=== PATIENT | female | born 1940 | race Caucasian/White ===

== ENCOUNTER 2019-01-08 09:57 | Observation (INO) | payer OTHER ==
[2019-01-08 10:25] LABS: Absolute Lymphocytes (CBC) 1.7 K/uL (0.7-4.9); Basophils % 1.1 % (0-1.3); Hematocrit 39.1 % (36.0-45.0); Lymphocytes % 26.8 % (15.3-44.8); RBC Red Blood Cell Count 4.12 M/uL (3.86-4.86)
[2019-01-08 10:29] LABS: Potassium 3.9 mmol/L (3.5-5.1)
[2019-01-08] MEDS ORDERED: Ringers Lactate 1,000 ML IV ONE ×2 (10:29→13:25)
[2019-01-08] MEDS: TRANEXAMIC ACID 1,000 MG in NA CHLORIDE 0.9% 50 ML IV SCH ×3 (11:19→12:15)
[2019-01-08] MEDS ORDERED: BUPIVACA 0.5%/EPI 0.0005%/PF 30 ML VIAL ONE (11:49)
[2019-01-08] MEDS ORDERED: FENTANYL CITR 100 MCG/2 ML ONE (11:52)
[2019-01-08] MEDS ORDERED: MIDAZOLAM HCL 2 MG/2 ML INJ ONE (11:52)
[2019-01-08] MEDS ORDERED: PROPOFOL 200 MG/20 ML VIAL IV ONE (11:52)
[2019-01-08] MEDS ORDERED: LIDOCAINE 2% MPF 5 ML VIAL ONE (11:52)
--- NOTE | 2019-01-08 11:53 | EKG ---
Test Date: 2019-01-08 Test Time: 09:52:11 Crystal Cutter: SKHimanshu MEASUREMENT RESULTS: Intervals: Rate: 51 NV: 172 QRSD: 80 QT: 440 QTc: 405 Adams: P: 54 NV: 172 QRS: 17 T: 28 INTERPRETIVE STATEMENTS: Sinus bradycardia Low voltage QRS Borderline ECG No previous ECG available for comparison Electronically Signed On 01-08-19 11:52:39 REPEATER OPERATOR by Rubens Mak
[2019-01-08] MEDS ORDERED: GLYCOPYRROLATE 0.2 MG/ML SYR ONE ×2 (12:12→12:14)
[2019-01-08] MEDS ORDERED: ESMOLOL HCL 10 ML IV ONE (12:43)
[2019-01-08] MEDS ORDERED: LABETALOL 20 MG/4ML SYRINGE IV ONE (13:08)
[2019-01-08] MEDS ORDERED: KETOROLAC 30 MG/ML INJ ONE (13:19)
--- NOTE | 2019-01-08 13:41 | P.BOP ---
Preoperative diagnosis: left septic olecranon bursitis Postoperative diagnosis: same Primary procedure: left bursectomy with sharp dissection Estimated blood loss: 10 Anesthesia: General Complications: None Transferred to: Recovery Room Condition: Good
[2019-01-08 14:49] VITALS: BMI 27.4
[2019-01-08] MEDS ORDERED: VANCOMYCIN 1.25 GM in NA CHLORIDE 0.9% 250 ML IVPB SCH (15:00)
--- NOTE | 2019-01-08 16:39 | P.CNS ---
Date of Consult: 01/08/19
--- NOTE | 2019-01-08 16:52 | P.CNS ---
Date of Consult: 01/08/19 Reason for Consult: Medical Mgmgt Requesting Physician: Noé Hilario Chief Complaint: Left Elbow Bursitis History of Present Illness: 78 y/o F with PMHX of Scoliosis who is currently treated with Pain pump and Stanley for pain mgmt comes to the hospital after being found to have Left Elbow Septic Bursitis. Pt was seen by ortho and had Surgical Procedure today and was admitted for further mgmt. Medicine Team was consulted for Medical mgmt. Pt denies any h/o of HTN, Diabetes, heart Disease. Pt has been dx with scoliosis and has been seeing a pain mgmt speciality. Recently had pain pump installed and has been doing well since. Denies any other complains at this time. Allergies No Known Allergies Allergy (Verified 01/08/19 09:32) Home medications list reviewed: Yes Home Medications: Aspirin [Aspirin EC 81 MG] 81 mg PO DAILY 01/08/19 Atorvastatin Calcium [Lipitor] 40 mg PO BEDTIME 01/08/19 Clindamycin HCl 300 mg PO TID 01/08/19 Clorazepate Dipotassium [Tranxene T-Tab] 7.5 mg PO PRN PRN 01/08/19 Duloxetine HCl 60 mg PO DAILY 01/08/19 Hydrocodone Bit/Acetaminophen [Hydrocodon-Acetaminoph 7.5-325] 1 each PO Q6HP PRN 01/08/19 Pain Pump 1 dose SQ DAILY 01/08/19 Topiramate [Trokendi Xr] 50 mg PO DAILY 01/08/19 - Past Medical/Surgical History Diabetic: No -: Scolosis -: Chronic pain syndrome Past Surgical History: Reviewed- Non-Contributory - Social History Smoking Status: Current every day smoker Counseled patient to stop smoking for: more than 10 minutes Smoking therapy provided: Yes Patient receptive to therapy: Yes Alcohol use: No CD- Drugs: No Caffeine use: No Place of Residence: Home Review of Systems 10-point ROS is otherwise unremarkable Physical Examination Temp Pulse Resp BP Pulse Ox 97.2 F 61 16 112/60 95 01/08/19 16:00 01/08/19 16:00 01/08/19 16:00 01/08/19 16:00 01/08/19 16:00 General: In no apparent distress, Other (Sedated at this time ) Neck: Supple, 2+ carotid pulse no bruit, No LAD, Without JVD or thyroid abnormality Respiratory: Clear to auscultation bilaterally, Normal air movement Cardiovascular: Regular rate/rhythm, Normal S1 S2 Gastrointestinal: Normal bowel sounds, No tenderness Musculoskeletal: Erythema, Tenderness, Warmth Integumentary: No rashes Neurological: Normal gait, Normal speech, Normal tone, Normal affect Lymphatics: No axilla or inguinal lymphadenopathy Laboratory Data (last 24 hrs) 01/08/19 09:40: Sodium 144, Potassium 3.9, BUN 17, Creatinine 0.87, Glucose 104 01/08/19 09:40: WBC 6.2, Hgb 13.7, Hct 39.1, Plt Count 243 - Problems (1) Olecranon bursitis, left elbow Current Visit: Yes Status: Acute Plan: Left Elbow with Septic Olecranon Bursitis -Ortho Primary on the case. -S.p I&D now POD # 0 -On IV Abx for now -Wound culture pending (2) Degenerative scoliosis in adult patient Current Visit: Yes Status: Chronic Plan: Stable at this time -Pain mgmt (3) Chronic pain syndrome Current Visit: Yes Status: Chronic Plan: On Pain pump and Stanley PRN. Will restart
[2019-01-08] MEDS: TRAMADOL 37.5mg/APAP 325mg PER TAB PO PRN (22:38)
[2019-01-08 23:25] VITALS: O2SAT 95
--- NOTE | 2019-01-09 00:28 | OP ---
Date of Procedure: 01/08/2019 Surgeon: Noé Hilario MD Preoperative Diagnosis: Left elbow septic olecranon bursitis. Postoperative Diagnosis: Left elbow septic olecranon bursitis. Procedure Performed: Left elbow bursectomy with sharp irrigation and debridement with closure of her drains. Estimated Blood Loss: 10 mL. Complications: There were no complications. There are cultures sent. Specimen: There is also the pathology specimen sent. Indication For Operation: Ms. Vincent is a 78-year-old female who reportedly 1 month ago started havin g pain and swelling related to her left elbow. She was seen by another physician where it was daljita talya. She said some white-appearing liquid was obtained. She was then placed on antibiotics and she continued on antibiotics, which did improve her elbow, but unfortunately still has an erythematous la rge olecranon bursa, which has not resolved despite 1 month of antibiotics. She was seen in offic e on Monday, where it was aspirated. Cultures did not return any pathogens, which is not surprising because of antibiotic treatment. However, she was continued on antibiotics until Monday and yesterda y we discussed again surgical intervention. She says she understands things as presented and wishes to proceed. Description Of Procedure: The patient was taken to the operating room and placed in supine position. General anesthesia was obtained by the staff. Following this, she was then rolled right side down with an axillary roll on a gutierrez bag. Bony prominences were checked by Anesthesia and her left upper extremity was then prepped and draped in usual sterile fashion for the procedure. Following this, th e arm was then elevated, but not exsanguinated. Tourniquet was raised. A posterior incision was mad e carefully down through the skin only, which was well above the elbow and well below the elbow and c are was taken not to progress deeper than the skin and also care was taken to avoid the direct tip of the elbow. This is followed by a very meticulous dissection more on the radial side. This was proc eeded in a clockwise fashion from 12 o'clock to 6 o'clock. We were able to gain purchase to the unde rsurface of the bursa. This was then shelled out to slightly past the midline. Care being taken to avoid the ulnar nerve. The same technique is done from a 12 o'clock to 6 o'clock position in a clock marks fashion. Stephanie care being taken to identify and protect the ulnar nerve until this was complete ly excised. Following this, a rongeur was used to remove some other tissues and cultures were sent f rom the specimen. The wound was then irrigated with approximately 2 L of sterile saline, it was agai n observed. There was found to be no sign of any purulent material and decision was made to close ov er drain. A medium Hemovac drain was then placed deep to the skin. Horizontal mattress sutures were then used to close the skin. The patient was then placed in extremely well-padded sterile dressing as well as a posterior splint, awakened and taken to the recovery room in good condition. JOSE Voice ID: [id number] Report ID: [id number]
[2019-01-09] MEDS: TRAMADOL 37.5mg/APAP 325mg PER TAB PO PRN (08:29)
[2019-01-09] MEDS ORDERED: levoFLOXacin 500 MG TAB PO SCH (09:00)
[2019-01-09 13:40] VITALS: BP 118/70; TEMP 98.1
== END 2019-01-09 15:18 | disposition home or self-care (01) ==
LOC: OR 09:57 → 2ND 14:02
PROVIDERS: ADMIT Orthopaedic Surgery; ATTEND Orthopaedic Surgery
PROC: 0MB40ZZ Excision of Left Elbow Bursa and Ligament, Open Approach (ICD-10-PCS; principal; 2019-01-08 11:30)
DX: M71.122 Other infective bursitis, left elbow (principal); M41.50 Other secondary scoliosis, site unspecified; G89.4 Chronic pain syndrome; Z79.82 Long term (current) use of aspirin; G47.30 Sleep apnea, unspecified
CPT/HCPCS: 93005; 87070; 85025; 80048; 36415; 87205 ×2; 88304; 87075; 97116; 97161; 24105; J2704; J3010; G0378 ×4; J7120 ×2; J7030; 88305; J2250

== ENCOUNTER 2020-03-13 07:05 | Inpatient (IN) | payer OTHER ==
[2020-03-13] MEDS ORDERED: LIDOCAINE VISCOUS 2% SOLN 15 ML UDC ONE (07:58)
[2020-03-13] MEDS ORDERED: ACETAMINOPHEN 325 MG TABLET ONE (08:25)
[2020-03-13] MEDS ORDERED: HYDROCODONE/APAP 10/325 TAB ONE (08:25)
[2020-03-13 08:29] LABS: Absolute Lymphocytes (CBC) 0.8 K/uL (0.7-4.9); Basophils % 0.1 % (0-1.3); Hematocrit 35.4 % (36.0-45.0); Lymphocytes % 5.2 % (15.3-44.8); MPV 7.7 fL (7.6-11.3); RBC Red Blood Cell Count 3.89 M/uL (3.86-4.86)
[2020-03-13 08:44] LABS: Potassium 3.3 mmol/L (3.5-5.1)
[2020-03-13 08:49] LABS: SARS-COV-2 RT PCR NEGATIVE (NEGATIVE)
--- NOTE | 2020-03-13 09:00 | RAD REPORT ---
EXAM DESCRIPTION: CT - Soft Tissue Neck W/Contr - 03/13/2020 8:42 am CLINICAL HISTORY: Neck pain with sore throat COMPARISON: None. TECHNIQUE: Computed axial tomography of the neck was obtained. 50 cc Isovue 300 was administered in travenously. Coronal and sagittal reconstruction was performed. All CT scans are performed using dose optimization technique as appropriate and may include automated exposure control or mA/KV adjustment according to patient size. FINDINGS: Fullness involves the right tongue base The pharynx, larynx and subglottic trachea appear unremarkable The parotid, submandibular and thyroid glands appear unremarkable. No lymphadenopathy is seen The sinuses and mastoids are clear. Postsurgical changes involve the lumbar spine IMPRESSION: Fullness involves the right tongue base. Direct visualization recommended
[2020-03-13 09:02] LABS: Blood Morphology Comment NOT SEEN (NOT SEEN); Platelet Estimate ADEQ
[2020-03-13] MEDS ORDERED: CEFTRIAXONE/SWI 1gm 1 GM/10 ML SYR ONE (10:45)
[2020-03-13] MEDS ORDERED: IBUPROFEN 200 MG TAB PO ONE (13:20)
[2020-03-13] MEDS ORDERED: IBUPROFEN 400 MG TAB ONE (13:20)
[2020-03-13 13:59] LABS: Absolute Lymphocytes (CBC) 1.9 K/uL (0.7-4.9); Basophils % 0.1 % (0-1.3); Lymphocytes % 7.9 % (15.3-44.8); MPV 7.8 fL (7.6-11.3); RBC Red Blood Cell Count 4.19 M/uL (3.86-4.86)
[2020-03-13] MEDS ORDERED: dexAMETHasone 10 MG/ML VIAL ONE (14:07)
[2020-03-13] MEDS ORDERED: CLINDAMYCIN 600MG/D5W 600 MG/50 ML BAG IV ONE (14:07)
[2020-03-13] MEDS ORDERED: ACETAMINOPHEN 500 MG TAB PO PRN (14:12)
[2020-03-13] MEDS ORDERED: ONDANSETRON 4 MG/2 ML VIAL IV PRN (14:12)
[2020-03-13] MEDS ORDERED: HYDROMORPHONE HCL 1 MG/ML INJ IV PRN (14:12)
--- NOTE | 2020-03-13 14:15 | ER ---
Nurse's Notes [facility] Name: Sylvia Vincent Age: 79 yrs Sex: Female : 1940 Arrival Date: 03/13/2020 Time: 07:06 Bed 7 Private MD: Diagnosis: Cata Liang Presentation: 03/13 07:17 Chief complaint: Sore throat x [address] Tabares 2 days ago, COVID and strep hb negative. Coronavirus screen: sore throat, Client presents with at least one sign or symptom that may indicate coronavirus-19. Standard/surgical mask placed on the client. Provider contacted for isolation considerations. Ebola Screen: No symptoms or risks identified at this time. Initial Sepsis Screen: Does the patient meet any 2 criteria? No. Patient's initial sepsis screen is negative. Does the patient have a suspected source of infection? No. Patient's initial sepsis screen is negative. Risk Assessment: Do you want to hurt yourself or someone else? Patient reports no desire to harm self or others. Onset of symptoms was March 08, 2020. 07:17 Method Of Arrival: Wheelchair hb 07:17 Acuity: CARLEE 4 hb 08:17 Acuity: CARLEE 3 hb Historical: - Allergies: 07:20 No Known Allergies; hb - Home Meds: 07:21 Pain Pump [Active]; hb - PMHx: 07:20 Scoliosis; Osteoarthritis; Chronic Back Pain; hb - PSHx: 07:20 Hysterectomy; hb - Immunization history:: Adult Immunizations up to date. - Social history:: Smoking status: Patient reports the use of cigarette tobacco products, smokes one-half pack cigarettes per day. Screenin:42 Abuse screen: Denies threats or abuse. Denies injuries from another. Nutritional sv screening: No deficits noted. Tuberculosis screening: No symptoms or risk factors identified. Fall Risk None identified. Assessment: 07:42 General: Appears in no apparent distress. uncomfortable, well groomed, well developed, sv Behavior is calm, cooperative, appropriate for age. Pain: Complains of pain in left aspect of posterior pharynx and right aspect of posterior pharynx Pain currently is 9 out of 10 on a pain scale. Pain began 2-3 days ago. Is intermittent. Neuro: Level of Consciousness is awake, alert, obeys commands, Oriented to person, place, time, situation, Moves all extremities. Full function. Respiratory: Airway is patent Respiratory effort is even, unlabored, Respiratory pattern is regular, symmetrical. EENT: Throat unable to fully visualize the back of the throat. Musculoskeletal: Range of motion: intact in all extremities. 09:00 Reassessment: Patient appears in no apparent distress at this time. No changes from sv previously documented assessment. Patient and/or family updated on plan of care and expected duration. Pain level reassessed. Patient is alert, oriented x 3, equal unlabored respirations, skin warm/dry/pink. 10:50 Reassessment: Patient appears in no apparent distress at this time. No changes from sv previously documented assessment. Patient and/or family updated on plan of care and expected duration. Pain level reassessed. Patient is alert, oriented x 3, equal unlabored respirations, skin warm/dry/pink. 12:14 Reassessment: Patient appears in no apparent distress at this time. No changes from sv previously documented assessment. Patient and/or family updated on plan of care and expected duration. Pain level reassessed. Patient is alert, oriented x 3, equal unlabored respirations, skin warm/dry/pink. 13:36 Reassessment: Patient appears in no apparent distress at this time. No changes from sv previously documented assessment. Patient and/or family updated on plan of care and expected duration. Pain level reassessed. Patient is alert, oriented x 3, equal unlabored respirations, skin warm/dry/pink. Dr Mahmood at the bedside. 14:30 Reassessment: Patient appears in no apparent distress at this time. No changes from sv previously documented assessment. Patient and/or family updated on plan of care and expected duration. Pain level reassessed. Patient is alert, oriented x 3, equal unlabored respirations, skin warm/dry/pink. 14:42 Reassessment: Attempted to call report, nurse unavailable. sv 15:30 Reassessment: Patient appears in no apparent distress at this time. No changes from sv previously documented assessment. Patient and/or family updated on plan of care and expected duration. Pain level reassessed. Patient is alert, oriented x 3, equal unlabored respirations, skin warm/dry/pink. Vital Signs: 07:17 BP 138 / 64; Pulse 72; Resp 16; Temp 100.9(TE); Pulse Ox 97% on R/A; Pain 9/10; hb 09:09 BP 121 / 55; Pulse 65; Resp 20; Temp 100.6(O); Pulse Ox 93% on R/A; mh5 10:02 BP 107 / 51; Pulse 62; Resp 16; Pulse Ox 94% ; sv 10:59 BP 117 / 58; Pulse 64; Resp 18; Temp 100.0(O); Pulse Ox 96% on R/A; mh5 12:01 BP 119 / 67; Pulse 68; Resp 18; Temp 101.3(O); Pulse Ox 100% on R/A; mh5 12:57 BP 120 / 50; Pulse 70; Resp 18; Temp 101.7; Pulse Ox 99% on R/A; mh5 14:03 BP 156 / 63; Pulse 66; Resp 16; Pulse Ox 95% on R/A; sv ED Course: 07:06 Patient arrived in ED. ag3 07:19 Triage completed. hb 07:21 Richie Hoang MD is Attending Physician. kdr 07:21 Arm band placed on. hb 07:22 Luz Rae, ALLIE is Primary Nurse. sv 07:42 Patient has correct armband on for positive identification. Bed in low position. Call sv light in reach. Door closed. Head of bed elevated. 07:42 COVID swab sent to lab. Flu and/or RSV swab sent to lab. Strep swab sent to lab. sv 08:20 Initial lab(s) drawn, by ri, sent to lab. Inserted saline lock: 20 gauge in right aa5 forearm, using aseptic technique. Blood collected. 08:37 Chem 7 Sent. sv 08:37 CBC with Diff Sent. sv 08:42 CT Soft Tissue Neck W/contr In Process Unspecified. EDMS 09:10 Pulse ox on. NIBP on. mh5 13:55 CBC with Diff Sent. mh5 14:13 Allison Shipman MD is Hospitalizing Provider. kdr 14:42 No provider procedures requiring assistance completed. Patient admitted, IV remains in sv place. intact. Administered Medications: 07:49 Drug: Viscous Lidocaine Liquid (4 %) 5 ml Route: Mucous Membrane; sv 08:24 Drug: [place] 10 mg-325 mg 1 tabs Route: PO; aa5 10:01 Follow up: Response: No adverse reaction; RASS: Drowsy (-1) sv 08:24 Drug: Tylenol 325 mg Route: PO; aa5 10:01 Follow up: Response: No adverse reaction; Temperature is decreased sv 10:50 Drug: Rocephin 1 grams Route: IV; Rate: calculated rate; Site: right forearm; sv 13:36 Drug: Motrin 600 mg Route: PO; sv 14:02 Follow up: Response: No adverse reaction sv 14:00 Drug: Decadron - Dexamethasone 10 mg Route: IVP; Site: right forearm; sv 15:00 Follow up: Response: No adverse reaction sv 14:02 Drug: Clindamycin 600 mg Route: IVPB; Infused Over: 30 mins; Site: right forearm; sv 14:30 Follow up: Response: No adverse reaction; IV Status: Infusion continued; IV Intake: 50mlsv Intake: 14:30 IV: 50ml; Total: 50ml. sv Outcome: 14:14 Decision to Hospitalize by Provider. kdr 15:30 Admitted to Med/surg accompanied by tech, via wheelchair, room 229, with chart, Report sv called to Dior KELLEY 15:30 Condition: stable 15:30 Instructed on the need for admit. 15:45 Patient left the ED. sv Signatures: Dispatcher [employer] Luz Ramírez RN Richie Duckworth MD MD kdr Calderon, Audri, RN RN 5 Violeta Lamb RN RN hb Martinez, Maria [facility] [place] 3
--- NOTE | 2020-03-13 14:15 | EDPHYS ---
Physician Documentation [facility] Name: Sylvia Vincent Age: 79 yrs Sex: Female : 1940 Arrival Date: 03/13/2020 Time: 07:06 Bed 7 Private MD: ED Physician Richie Hoang HPI: 03/13 07:39 This 79 yrs old Female presents to ER via Wheelchair with complaints of Sore kdr Throat. 07:40 The patient presents with sore throat, dysphagia, of both solids and liquids. The kdr patient describes throat pain as burning, constant, raw, scratchy. Onset: The symptoms/episode began/occurred gradually, 5 day(s) ago. Severity of symptoms: At their worst the symptoms were mild, moderate, just prior to arrival, in the emergency department the symptoms are unchanged. Modifying factors: The symptoms are alleviated by nothing, the symptoms are aggravated by fluids, foods, swallowing, Patient's oral intake status: good. Associated signs and symptoms: The patient has no apparent associated signs or symptoms. The patient has not experienced similar symptoms in the past. The patient has been recently seen by a physician: the patient's primary care provider, 2 day(s) ago. Historical: - Allergies: 07:20 No Known Allergies; hb - Home Meds: 07:21 Pain Pump [Active]; hb - PMHx: 07:20 Scoliosis; Osteoarthritis; Chronic Back Pain; hb - PSHx: 07:20 Hysterectomy; hb - Immunization history:: Adult Immunizations up to date. - Social history:: Smoking status: Patient reports the use of cigarette tobacco products, smokes one-half pack cigarettes per day. ROS: 07:40 Constitutional: Negative for fever, chills, and weight loss, Eyes: Negative for injury, kdr pain, redness, and discharge, Neck: Negative for injury, pain, and swelling, Cardiovascular: Negative for chest pain, palpitations, and edema, Respiratory: Negative for shortness of breath, cough, wheezing, and pleuritic chest pain, Abdomen/GI: Negative for abdominal pain, nausea, vomiting, diarrhea, and constipation, Back: Negative for injury and pain, : Negative for injury, bleeding, discharge, and swelling, MS/Extremity: Negative for injury and deformity, Skin: Negative for injury, rash, and discoloration, Neuro: Negative for headache, weakness, numbness, tingling, and seizure activity. Psych: Negative for depression, anxiety, suicide ideation, homicidal ideation, and hallucinations, Allergy/Immunology: Negative for hives, rash, and allergies, Endocrine: Negative for neck swelling, polydipsia, polyuria, polyphagia, and marked weight changes, Hematologic/Lymphatic: Negative for swollen nodes, abnormal bleeding, and unusual bruising. 07:40 ENT: Positive for sore throat. Exam: 07:40 Constitutional: This is a well developed, well nourished patient who is awake, alert, kdr and in no acute distress. Head/Face: Normocephalic, atraumatic. Eyes: Pupils equal round and reactive to light, extra-ocular motions intact. Lids and lashes normal. Conjunctiva and sclera are non-icteric and not injected. Cornea within normal limits. Periorbital areas with no swelling, redness, or edema. Neck: Trachea midline, no thyromegaly or masses palpated, and no cervical lymphadenopathy. Supple, full range of motion without nuchal rigidity, or vertebral point tenderness. No Meningismus. Chest/axilla: Normal chest wall appearance and motion. Nontender with no deformity. No lesions are appreciated. Cardiovascular: Regular rate and rhythm with a normal S1 and S2. No gallops, murmurs, or rubs. Normal PMI, no JVD. No pulse deficits. Respiratory: Lungs have equal breath sounds bilaterally, clear to auscultation and percussion. No rales, rhonchi or wheezes noted. No increased work of breathing, no retractions or nasal flaring. 07:40 ENT: Mouth: Lips: normal, moist, Oral mucosa: normal, pink and intact, Tongue: is normal, drooling, is not appreciated, Posterior pharynx: Airway: normal, patent, Tonsils: with erythema, no enlargement, no exudate, no ulcerations, Uvula: midline, swelling, is not appreciated, erythema, that is mild, exudate, is not appreciated, peritonsillar mass, is not appreciated, pooling of secretions, is not appreciated, Voice: is normal. Vital Signs: 07:17 BP 138 / 64; Pulse 72; Resp 16; Temp 100.9(TE); Pulse Ox 97% on R/A; Pain 9/10; hb 09:09 BP 121 / 55; Pulse 65; Resp 20; Temp 100.6(O); Pulse Ox 93% on R/A; mh5 10:02 BP 107 / 51; Pulse 62; Resp 16; Pulse Ox 94% ; sv 10:59 BP 117 / 58; Pulse 64; Resp 18; Temp 100.0(O); Pulse Ox 96% on R/A; mh5 12:01 BP 119 / 67; Pulse 68; Resp 18; Temp 101.3(O); Pulse Ox 100% on R/A; mh5 12:57 BP 120 / 50; Pulse 70; Resp 18; Temp 101.7; Pulse Ox 99% on R/A; mh5 14:03 BP 156 / 63; Pulse 66; Resp 16; Pulse Ox 95% on R/A; sv MDM: 09:19 Physician consultation: Luz Mahmood MD was called at 09:19. kdr 13:12 Data reviewed: vital signs, nurses notes, lab test result(s). Awaiting: consulting [facility] physician, Dr. Dr. Mahmood. 14:14 Patient medically screened. kdr 03/13 07:38 Order name: Strep; Complete Time: 08:50 kdr 03/13 08:07 Order name: CBC with Diff kdr 03/13 08:07 Order name: Chem 7 kdr 03/13 08:07 Order name: CBC with Automated Diff; Complete Time: 09:11 EDMS 03/13 08:07 Order name: Basic Metabolic Panel; Complete Time: 08:50 EDMS 03/13 08:13 Order name: Throat Culture EDMS 03/13 08:36 Order name: Manual Differential; Complete Time: 09:11 EDSD 03/13 08:49 Order name: COVID-19/FLU A+B; Complete Time: 08:50 EDMS 03/13 10:10 Order name: Blood Culture Adult (2) kdr 03/13 13:16 Order name: CBC with Diff kdr 03/13 14:16 Order name: Basic Metabolic Panel EDMS 03/13 14:16 Order name: Basic Metabolic Panel EDSD 03/13 08:06 Order name: CT Soft Tissue Neck W/contr; Complete Time: 09:11 kdr 03/13 14:16 Order name: CONS Pharmacy Consult EDMS 03/13 14:16 Order name: CONS Pharmacy Consult EDSD 03/13 14:16 Order name: Heart Healthy EDMS 03/13 14:16 Order name: CBC with Automated Diff EDMS 03/13 14:16 Order name: CBC with Automated Diff EDMS 03/13 14:39 Order name: CBC Smear Scan EDMS Administered Medications: 07:49 Drug: Viscous Lidocaine Liquid (4 %) 5 ml Route: Mucous Membrane; sv 08:24 Drug: [place] 10 mg-325 mg 1 tabs Route: PO; aa5 10:01 Follow up: Response: No adverse reaction; RASS: Drowsy (-1) sv 08:24 Drug: Tylenol 325 mg Route: PO; aa5 10:01 Follow up: Response: No adverse reaction; Temperature is decreased sv 10:50 Drug: Rocephin 1 grams Route: IV; Rate: calculated rate; Site: right forearm; sv 13:36 Drug: Motrin 600 mg Route: PO; sv 14:02 Follow up: Response: No adverse reaction sv 14:00 Drug: Decadron - Dexamethasone 10 mg Route: IVP; Site: right forearm; sv 15:00 Follow up: Response: No adverse reaction sv 14:02 Drug: Clindamycin 600 mg Route: IVPB; Infused Over: 30 mins; Site: right forearm; sv 14:30 Follow up: Response: No adverse reaction; IV Status: Infusion continued; IV Intake: 50mlsv Disposition: 03/13/20 14:14 Hospitalization ordered by Allison Shipman for Inpatient Admission. Preliminary diagnosis is Ludwigs Angia. - Bed requested for Telemetry/MedSurg (observation). - Status is Inpatient Admission. sv - Condition is Fair. - Problem is new. - Symptoms have improved. Signatures: Dispatcher [employer] EDSD Luz Rae RN Pam Orlando RN RN Richie Hoang MD MD [facility] Erinn Alexandre RN RN aa5 Violeta Lamb RN RN Corrections: (The following items were deleted from the chart) 08:03 07:39 CORONAVIRUS+MR.LAB.BRZ ordered. EDMS EDMS 08:04 07:39 Influenza Screen (A \T\ B)+BA.LAB.BRZ ordered. EDMS EDMS 14:34 14:14 Hospitalization Ordered by Allison Shipman MD for Inpatient Admission. Preliminary mw diagnosis is Ludwigs Angia. Bed requested for Telemetry/MedSurg (observation). Status is Inpatient Admission. Condition is Fair. Problem is new. Symptoms have improved. kdr 15:45 14:34 03/13/2020 14:14 Hospitalization Ordered by Allison Shipman MD for Inpatient sv Admission. Preliminary diagnosis is Ludwigs Angia. Bed requested for Telemetry/MedSurg (observation). Status is Inpatient Admission. Condition is Fair. Problem is new. Symptoms have improved. mw
[2020-03-13 14:39] LABS: Blood Morphology Comment NOT SEEN (NOT SEEN); Platelet Estimate ADEQ; White Blood Cell Scan OK (OK)
--- NOTE | 2020-03-13 15:52 | CON ---
Date of Consultation: 03/13/2020 Reason For Consultation: Sore throat. History Of Present Illness: The patient is seen in the emergency room complaining of pain in the nora th and pain with talking. She is unable to give significant additional history due to her discomfort . A separately obtained history is obtained from the spouse while he is in the waiting room. The sp ouse reports that on March 09, the patient began having some scratchy throat. She had prog ression of her scratchy throat and was seen on Monday, the 11 of March by her primary care, Dr Verona Jackman in [place]. A COVID test, a flu test, and a strep test were performed in the office and w ere all reported as negative. The patient was discharged home with no additional medications and no antibiotics. Over the next 48 hours, the patient continued to worsen and came to the emergency room this morning because she was holding her throat and having difficulty speaking. She was able to tole rate some sips of cold water at home. The reports the patient has a history of dental issues , but has fear of the dentist. She has not had any recent dental procedures. She has had no prior s imilar episodes. Further history obtained from the spouse includes the following. Past Medical/surgical History: Includes scoliosis, osteoarthritis, chronic back pain with history of a pain pump and pain management by Dr. Jackman. The patient has a remote history of hysterectomy an d breast biopsy. Allergies: NO KNOWN DRUG ALLERGIES. Social History: The patient smokes about 3/4 of a pack of cigarettes per day. Her spouse denies any alcohol use. Medications: Her home medication list brought by the patient includes aspirin 81 mg chewable daily, atorvastatin 40 mg daily, cefuroxime 250 mg for bladder infection. It is uncertain based on review o f the chart, whether she is actually on these medications or not. Clorazepate 7.5 mg for anxiety and depression, duloxetine 60 mg for anxiety and depression, hydrocodone/acetaminophen 10/325 for chroni c back pain, mupirocin 2% ointment or open wound. I did not discuss the site of the wound with the p atient or the spouse. Topiramate 50 mg for migraine. Physical Examination: The patient is in mild distress with pain and pain with speaking and talking. She is tolerating her own secretions. Her head and face are normocephalic and atraumatic. Her pupils are equal, round, an d reactive. Extraocular movements are intact. Her sclerae are anicteric. Her external nose and therese es are within normal limits. In regard to her oral cavity, her lips appear within normal limits. He r gingiva and dentition do not show any obvious cavity or dental abscess. She has mild trismus. The tongue overall appears somewhat swollen. I am not able to visualize her soft palate, uvula, posteri or pharyngeal wall, or tonsils. The floor of mouth is moderately edematous and fairly dramatically r ed with tenderness and moderate induration to palpation. There is no significant palpable lymphadeno roxana of the neck. Her range of motion appears to be intact. The patient's respirations are quiet a nd nonlabored. Her vitals signs are otherwise stable. Data Reviewed: The patient has leukocytosis at 15.5. Her CT images are personally reviewed by me. There is no evidence of hyperlucency or abscess formation within the oral cavity, oropharynx, or neck . There is some prominent area of possible increased contrast enhancement in level 1 of the neck. W ithout clear lymphadenopathy, this may represent some of the soft tissue edema that is noted on her e xam. This area of abnormality does not appear to be connected to the submandibular salivary glands. There is no significant soft tissue stranding around the salivary glands. There is no evidence of s ialolithiasis. There is no significant hyperlucency around the roots of the mandibular teeth to sugg est a clear dental abscess with extension. Assessments: Based on the physical exam, I am most concerned about Jose's angina, which represents a cellulitis of the floor of mouth. Most cases extend from dental infection, though no discrete den brett abscesses identified. Jose's angina is an infection that can progress and cause prolapse of th e base of tongue causing airway obstruction. Therefore, this is a moderate to high risk condition du e to the risk of airway obstruction without treatment. I recommend inpatient hospitalization with IV antibiotics, IV steroids, and close monitoring over the next 48-72 hours. If the patient improves s ignificantly within 48 hours, outpatient treatment can be administered. I discussed my findings and clinical concerns with the patient and the spouse and the emergency room, Dr. Vergara. He will plan to contact the hospitalist service for inpatient management. I will continue to follow the patient c losely along with you. We also discussed the option for transfer as there is no oral surgery faculty available at the local hospital. Due to the lack of obvious dental abscess, transferred to the [facility] for oral surgery evaluation can be considered in light of the current COVID pandemic surge , transferred to the [facility] may be difficult due to lack of bed availability. Appropriate an tibiotic choice would ideally cover intraoral pathogens and clindamycin would be my first choice. Th e patient has received 1 dose of Rocephin thus far. HAYLIE/HANNAH Voice ID: [id number] Report ID: [id number]
--- NOTE | 2020-03-13 15:58 | P.HP ---
Certification for Inpatient Patient admitted to: Inpatient With expected LOS: >2 Midnights Patient will require the following post-hospital care: None Practitioner: I am a practitioner with admitting privileges, knowledge of patient current condition, hospital course, and medical plan of care. Services: Services provided to patient in accordance with Admission requirements found in Title 42 Section 412.3 of the Code of Federal Regulations Patient History Date of Service: 03/13/20 Reason for admission: Oropharyngeal erythema/? Jose's angina History of Present Illness: Patient is a 79-year-old female who comes into the hospital with significant erythema of the oropharyngeal region. Patient was felt to have Jose's angina. Patient was admitted for IV antibiotic therapy. We will monitor the patient very closely. ENT consultation is also in place. Patient also has very poor dentition. Patient will need to follow-up with dentist as an outpatient. Allergies No Known Allergies Allergy (Verified 01/08/19 09:32) Home Medications: Aspirin [Aspirin EC 81 MG] 81 mg PO DAILY 01/08/19 Atorvastatin Calcium [Lipitor] 40 mg PO BEDTIME 01/08/19 Clorazepate Dipotassium [Tranxene T-Tab] 7.5 mg PO PRN PRN 01/08/19 Duloxetine HCl 60 mg PO DAILY 01/08/19 Hydrocodone Bit/Acetaminophen [Hydrocodon-Acetaminoph 7.5-325] 1 each PO Q6HP PRN 01/08/19 Pain Pump 1 dose SQ DAILY 01/08/19 Topiramate [Trokendi Xr] 50 mg PO DAILY 01/08/19 clindamycin HCL [Clindamycin HCl] 300 mg PO TID 5 Days #15 capsule 01/09/19 Cefdinir [Omnicef] 300 mg PO TID #21 capsule 03/15/20 clindamycin HCL [Clindamycin HCl] 300 mg PO TID #21 capsule 03/15/20 - Past Medical/Surgical History Diabetic: No -: Scolosis -: Chronic pain syndrome Past Surgical History: Patient denies surgical history - Family History Father Family History: Reviewed- Non-Contributory - Social History Alcohol use: No CD- Drugs: No Caffeine use: No Review of Systems 10-point ROS is otherwise unremarkable Physical Examination - Vital Signs Temperature: 101.7 F Blood Pressure: 120/50 Pulse: 70 Respirations: 18 - Physical Exam General: Alert, In no apparent distress, Oriented x3 HEENT: Atraumatic, PERRLA, Mucous membr. moist/pink, EOMI, Sclerae nonicteric Neck: Supple, 2+ carotid pulse no bruit, No LAD, Without JVD or thyroid abnormality Respiratory: Clear to auscultation bilaterally, Normal air movement Cardiovascular: Regular rate/rhythm, Normal S1 S2, No murmurs Gastrointestinal: Normal bowel sounds, Soft and benign, Non-distended, No tenderness Musculoskeletal: No clubbing, No swelling, No tenderness Integumentary: No rashes Neurological: Normal gait, Normal speech, Normal strength at 5/5 x4 extr, Normal tone, Sensation intact, Cranial nerves 3-12 intact, Normal affect Lymphatics: No axilla or inguinal lymphadenopathy - Studies Laboratory Data (last 24 hrs) 03/13/20 13:52: WBC 24.2 H* D, Hgb 12.2, Hct 38.0, Plt Count 256 03/13/20 08:20: Sodium 138, Potassium 3.3 L, BUN 13, Creatinine 0.66, Glucose 132 H 03/13/20 08:20: WBC 15.0 H, Hgb 11.4 L, Hct 35.4 L, Plt Count 224 Microbiology Data (last 24 hrs): 03/13/20 07:42 Throat Group A Streptococcus Rapid Screen - Final Assessment & Plan - Problems (Diagnosis) (1) Jose's angina Current Visit: Yes Status: Acute (2) Oropharynx infection Current Visit: Yes Status: Acute - Plan 1. Continue with IV antibiotic 2. Monitor oral pharyngeal region 3. ENT consultation 4. Gentle IV hydration 5. Monitor CBC 6. Strict blood sugar monitoring 7. Pain control 8. GI and DVT prophylaxis Discharge Plan: Home Plan to discharge in: Greater than 2 days - Advance Directives Does patient have a Living Will: No Does patient have a Durable POA for Healthcare: No - Code Status/Comfort Care Code Status Assessed: Yes Code Status: Full Code Critical Care: No Time Spent Managing PTS Care (In Minutes): 40
[2020-03-13] MEDS ORDERED: VANCOMYCIN/NS 1 gm 1 GM/250 ML BAG IVPB ONE (16:00)
[2020-03-13 16:58] VITALS: BMI 26.2
[2020-03-13] MEDS: NA CHLORIDE 0.9% 1,000 ML IV SCH (18:31)
[2020-03-13] MEDS: CEFTRIAXONE/SWI 1gm 1 GM/10 ML SYR IVP SCH (20:59)
[2020-03-13] MEDS: METHYLPREDNISOLONE 125 MG INJ IV SCH (20:59)
[2020-03-13] MEDS: HYDROCODONE/APAP 7.5/325 MG TAB PO PRN (21:05)
[2020-03-14] MEDS: CLINDAMYCIN INJ 600 MG in NA CHLORIDE 0.9% 50 ML IV SCH ×3 (00:28→16:23)
[2020-03-14] MEDS ORDERED: VANCOMYCIN/NS 1 gm 1 GM/250 ML BAG IVPB SCH (04:00)
[2020-03-14] MEDS: NA CHLORIDE 0.9% 1,000 ML IV SCH ×4 (05:45→20:14)
[2020-03-14 05:53] LABS: Absolute Lymphocytes (CBC) 1.2 K/uL (0.7-4.9); Basophils % 0.3 % (0-1.3); Hematocrit 35.7 % (36.0-45.0); Lymphocytes % 7.3 % (15.3-44.8); MPV 7.7 fL (7.6-11.3); RBC Red Blood Cell Count 3.94 M/uL (3.86-4.86)
[2020-03-14 06:16] LABS: Potassium 3.2 mmol/L (3.5-5.1)
[2020-03-14 06:19] LABS: Magnesium 2.3 mg/dL (1.8-2.4)
[2020-03-14] MEDS: HYDROCODONE/APAP 7.5/325 MG TAB PO PRN (06:50)
[2020-03-14] MEDS: CEFTRIAXONE/SWI 1gm 1 GM/10 ML SYR IVP SCH ×2 (09:00→20:25)
[2020-03-14] MEDS: TOPIRAMATE 50 MG PO SCH (09:00)
[2020-03-14 09:17] LABS: Blood Morphology Comment NOT SEEN (NOT SEEN); Platelet Estimate ADEQ; White Blood Cell Scan OK (OK)
[2020-03-14] MEDS: METHYLPREDNISOLONE 125 MG INJ IV SCH ×2 (09:17→20:25)
--- NOTE | 2020-03-14 09:17 | PN ---
Date of Progress Note: 03/14/2020 Interval History: The patient was admitted yesterday through the emergency room with oral and floor of mouth cellulitis suspicious for Jose's angina. She has been treated with methylprednisolone, Cleocin, Rocephin, and possibly vancomycin. Today, the patient reports that her pain is improving. Her ability to speak is improving and she was able to tolerate her breakfast this morning without significant difficulty. Objective: Upon examination, the degree of redness of the floor of mouth is significantly improved. She has persistent areas of scattered redness particularly around the openings of [place]'s ducts with some ecchymotic appearance of the ventral surface of the tongue. There is also some ecchymosis appearing area of the right dorsal tongue with mild swelling of the oral tongue. The patient requests that I not palpate the tongue and says she is tired of "being poked on." Assessment: Improvements in clinical status and degree of swelling. Recommendations: I recommend continuing Cleocin. Continuing her oral diet. I would consider discontinuing the steroids to evaluate response off steroids over the next 24 hours. I encouraged the patient to ambulate and sit in a chair as feasible. I also discussed the importance of following up with her dentist following discharge as many of these infections start from the mandibular tooth problem. The patient does acknowledge that she has had problems with some upper crowns and broken teeth of the maxilla over the last year, but has avoided care due to fear of dentist and due to fear of exposure from coronavirus. She is more amenable to seeking outpatient dental evaluation and appears to understand the importance of doing so in order to avoid recurrence of this infection. If the patient continues to improve clinically, I would recommend discharge tomorrow and the patient is amenable to continue treatment over the next 24 hours. HAYLIE/HANNAH Voice ID: [id number] Report ID: [id number] AMILCAR
[2020-03-14] MEDS ORDERED: VANCOMYCIN 1.25 GM in NA CHLORIDE 0.9% 250 ML IVPB SCH (16:00)
[2020-03-14 23:12] VITALS: O2SAT 96
[2020-03-15] MEDS: CLINDAMYCIN INJ 600 MG in NA CHLORIDE 0.9% 50 ML IV SCH ×2 (00:21→09:24)
[2020-03-15 05:18] LABS: Absolute Lymphocytes (CBC) 1.3 K/uL (0.7-4.9); Basophils % 0.1 % (0-1.3); Hematocrit 38.4 % (36.0-45.0); Lymphocytes % 7.8 % (15.3-44.8); MPV 7.9 fL (7.6-11.3)
[2020-03-15 05:35] LABS: Potassium 3.3 mmol/L (3.5-5.1)
[2020-03-15] MEDS: TOPIRAMATE 50 MG PO SCH (09:00)
[2020-03-15] MEDS: CEFTRIAXONE/SWI 1gm 1 GM/10 ML SYR IVP SCH (09:16)
[2020-03-15] MEDS: METHYLPREDNISOLONE 125 MG INJ IV SCH (09:17)
--- NOTE | 2020-03-15 09:39 | PN ---
Date of Progress Note: 03/15/2020 Interim History: This is hospital day 2 for the patient who was admitted for IV antibiotics and clos e monitoring for floor of mouth cellulitis. The patient continues to improve clinically. Her pain h as much improved compared to admission, but she still has some soreness of the tongue. She is tolera ting oral fluids and solid foods without significant difficulty. Physical Examination: GENERAL: The patient is alert and talkative. Her general demeanor has significantly improved. HEENT: She is noted to have some persistent appearance of bruising or ecchymosis of the oral tongue and floor of mouth, but the degree in swelling has virtually resolved. The oral tongue swelling has significantly improved. Assessment: Clinical improvement following aggressive medical therapy. Recommendations: Discharged to home with diet as tolerated and oral clindamycin for 7 to 10 days. T he patient should follow up with her dentist within 1 month for evaluation of causative mechanism. T he patient notes some concerns about intermittent nose bleeds, sinus problems, intermittent ear pain, though these problems are not active at this time. I encouraged her to schedule an outpatient evalu ation with my nurse practitioner for further discussion of these problems when she desires to do so. HAYLIE/HANNAH Voice ID: [id number] Report ID: [id number]
--- NOTE | 2020-03-15 12:40 | P.PN ---
Subjective Date of Service: 03/14/20 Patient is clinically doing much better. Patient continues to improve. Awaiting culture results at this time Review of Systems 10-point ROS is otherwise unremarkable Physical Examination - Vital Signs Temperature: 97.9 F Blood Pressure: 161/71 Pulse: 65 Respirations: 16 Pulse Ox (%): 95 - Physical Exam General: Alert, In no apparent distress, Oriented x3 HEENT: Other (oropharyngeal redness) Respiratory: Clear to auscultation bilaterally, Normal air movement Cardiovascular: Regular rate/rhythm, Normal S1 S2, No murmurs Gastrointestinal: Normal bowel sounds, Soft and benign, Non-distended, No tenderness Musculoskeletal: No clubbing, No swelling, No tenderness Neurological: Sensation intact, Cranial nerves 3-12 intact - Studies Microbiology Data (last 24 hrs): 03/13/20 07:42 Throat Culture & Sensitivity - Final NORMAL UPPER RESPIRATORY LOLA GROWN. Medications List Reviewed: Yes Assessment & Plan - Problems (Diagnosis) (1) Oropharynx infection Current Visit: Yes Status: Acute (2) Jose's angina Current Visit: Yes Status: Acute - Plan 1. Continue with IV antibiotic 2. Monitor patient's oropharyngeal region 3. Appreciate ENT consultation 4. Gentle IV hydration 5. Monitor CBC 6. Strict blood sugar monitoring 7. Pain control 8. GI and DVT prophylaxis Discharge Plan: Home Plan to discharge in: Greater than 2 days - Advance Directives Does patient have a Living Will: No Does patient have a Durable POA for Healthcare: No - Code Status/Comfort Care Code Status Assessed: Yes Code Status: Full Code Critical Care: No Time Spent Managing PTS Care (In Minutes): 35
--- NOTE | 2020-03-15 12:43 | P.DS ---
Discharge Date: 03/15/20 Disposition: ROUTINE DISCHARGE Discharge Condition: GOOD Reason for Admission: Oropharyngeal erythema/? Joes's angina Consultations: ENT - Problems (1) Oropharynx infection Status: Acute (2) Jose's angina Status: Acute Brief History of Present Illness: Patient is a 79-year-old female who comes into the hospital with significant erythema of the oropharyngeal region. Patient was felt to have Jose's angina. Patient was admitted for IV antibiotic therapy. We will monitor the patient very closely. ENT consultation is also in place. Patient also has very poor dentition. Patient will need to follow-up with dentist as an outpatient. Hospital Course: Patient has done well during hospital stay. Erythema has improved. Pain has resolved. At this time patient is stable for discharge on oral antibiotics with outpatient follow-up. Vital Signs/Physical Exam: Temp Pulse Resp BP Pulse Ox 97.9 F 65 16 161/71 H 95 03/15/20 12:40 03/15/20 12:40 03/15/20 12:40 03/15/20 12:40 03/15/20 12:40 General: Alert, In no apparent distress, Oriented x3 HEENT: Other (Very minimal erythema of the subhypoglossal region) Laboratory Data at Discharge: WBC 17.2 K/uL (4.3-10.9) H 03/15/20 05:11 Hgb 12.3 g/dL (12.0-15.0) 03/15/20 05:11 Hct 38.4 % (36.0-45.0) 03/15/20 05:11 Plt Count 299 K/uL (152-406) D 03/15/20 05:11 Sodium 141 mmol/L (136-145) 03/15/20 05:11 Potassium 3.3 mmol/L (3.5-5.1) L 03/15/20 05:11 BUN 20 mg/dL (7-18) H 03/15/20 05:11 Creatinine 0.68 mg/dL (0.55-1.3) 03/15/20 05:11 Glucose 138 mg/dL (74-106) H 03/15/20 05:11 Phosphorus 3.0 mg/dL (2.5-4.9) 03/14/20 05:42 Magnesium 2.3 mg/dL (1.8-2.4) 03/14/20 05:42 Home Medications: Aspirin [Aspirin EC 81 MG] 81 mg PO DAILY 01/08/19 Atorvastatin Calcium [Lipitor] 40 mg PO BEDTIME 01/08/19 Clorazepate Dipotassium [Tranxene T-Tab] 7.5 mg PO PRN PRN 01/08/19 Duloxetine HCl 60 mg PO DAILY 01/08/19 Hydrocodone Bit/Acetaminophen [Hydrocodon-Acetaminoph 7.5-325] 1 each PO Q6HP PRN 01/08/19 Pain Pump 1 dose SQ DAILY 01/08/19 Topiramate [Trokendi Xr] 50 mg PO DAILY 01/08/19 clindamycin HCL [Clindamycin HCl] 300 mg PO TID 5 Days #15 capsule 01/09/19 Cefdinir [Omnicef] 300 mg PO TID #21 capsule 03/15/20 Cefdinir [Omnicef] 300 mg PO TID #21 capsule 03/15/20 clindamycin HCL [Clindamycin HCl] 300 mg PO TID #21 capsule 03/15/20 clindamycin HCL [Clindamycin HCl] 300 mg PO TID #21 capsule 03/15/20 New Medications: clindamycin HCL [Clindamycin HCl] 300 mg PO TID #21 capsule clindamycin HCL [Clindamycin HCl] 300 mg PO TID #21 capsule Cefdinir [Omnicef] 300 mg PO TID #21 capsule Cefdinir [Omnicef] 300 mg PO TID #21 capsule Patient Discharge Instructions: OK TO DC IV AND DC HOME. FOLLOW-UP WITH PRIMARY CARE PROVIDER IN 1-2 WEEKS. FOLLOW-UP WITH ENT IN 1 WEEK. RETURN TO THE ER IF symptoms worsen. CALL or TEXT DR. RUSSELL AT [phone] IF ANY QUESTIONS REGARDING HOSPITAL STAY. PLEASE CALL THE FLOOR AT [phone] IF ANY MEDICATION OR NURSING QUESTIONS. Diet: AHA Activity: Fall precautions Followup: Luz Mahmood MD [ACTIVE - CAN ADMIT] - Lemuel Jackman MD [Primary Care Provider] - Time spent managing pt's care (in minutes): 35
[2020-03-15 12:44] VITALS: BP 120/50; TEMP 101.7
--- NOTE | 2020-03-18 03:21 | P.DS ---
Discharge Date: 03/15/20 Disposition: ROUTINE DISCHARGE Discharge Condition: GOOD Reason for Admission: Oropharyngeal erythema/? Jose's angina Consultations: ENT - Problems (1) Oropharynx infection Status: Acute (2) Jose's angina Status: Acute Brief History of Present Illness: Patient is a 79-year-old female who is admitted to the hospital for cellulitis of the mouth. Concerned for Jose's angina. Patient was admitted for IV antibiotic therapy. Hospital Course: Patient has done well during hospital stay. Patient is clinically doing much better and is stable for discharge home with outpatient follow up. Vital Signs/Physical Exam: Temp Pulse Resp BP Pulse Ox 101.7 F H 70 18 120/50 L 95 03/15/20 12:44 03/15/20 12:44 03/15/20 12:44 03/15/20 12:44 03/15/20 12:40 General: Alert, In no apparent distress, Oriented x3 Laboratory Data at Discharge: WBC 17.2 K/uL (4.3-10.9) H 03/15/20 05:11 Hgb 12.3 g/dL (12.0-15.0) 03/15/20 05:11 Hct 38.4 % (36.0-45.0) 03/15/20 05:11 Plt Count 299 K/uL (152-406) D 03/15/20 05:11 Sodium 141 mmol/L (136-145) 03/15/20 05:11 Potassium 3.3 mmol/L (3.5-5.1) L 03/15/20 05:11 BUN 20 mg/dL (7-18) H 03/15/20 05:11 Creatinine 0.68 mg/dL (0.55-1.3) 03/15/20 05:11 Glucose 138 mg/dL (74-106) H 03/15/20 05:11 Phosphorus 3.0 mg/dL (2.5-4.9) 03/14/20 05:42 Magnesium 2.3 mg/dL (1.8-2.4) 03/14/20 05:42 Home Medications: Aspirin [Aspirin EC 81 MG] 81 mg PO DAILY 01/08/19 Atorvastatin Calcium [Lipitor] 40 mg PO BEDTIME 01/08/19 Clorazepate Dipotassium [Tranxene T-Tab] 7.5 mg PO PRN PRN 01/08/19 Duloxetine HCl 60 mg PO DAILY 01/08/19 Hydrocodone Bit/Acetaminophen [Hydrocodon-Acetaminoph 7.5-325] 1 each PO Q6HP PRN 01/08/19 Pain Pump 1 dose SQ DAILY 01/08/19 Topiramate [Trokendi Xr] 50 mg PO DAILY 01/08/19 clindamycin HCL [Clindamycin HCl] 300 mg PO TID 5 Days #15 capsule 01/09/19 Cefdinir [Omnicef] 300 mg PO TID #21 capsule 03/15/20 Cefdinir [Omnicef] 300 mg PO TID #21 capsule 03/15/20 clindamycin HCL [Clindamycin HCl] 300 mg PO TID #21 capsule 03/15/20 clindamycin HCL [Clindamycin HCl] 300 mg PO TID #21 capsule 03/15/20 New Medications: clindamycin HCL [Clindamycin HCl] 300 mg PO TID #21 capsule clindamycin HCL [Clindamycin HCl] 300 mg PO TID #21 capsule Cefdinir [Omnicef] 300 mg PO TID #21 capsule Cefdinir [Omnicef] 300 mg PO TID #21 capsule Patient Discharge Instructions: OK TO DC IV AND DC HOME. FOLLOW-UP WITH PRIMARY CARE PROVIDER IN 1-2 WEEKS. FOLLOW-UP WITH ENT IN 1 WEEK. RETURN TO THE ER IF symptoms worsen. CALL or TEXT DR. RUSSELL AT [phone] IF ANY QUESTIONS REGARDING HOSPITAL STAY. PLEASE CALL THE FLOOR AT [phone] IF ANY MEDICA TION OR NURSING QUESTIONS. Diet: AHA Activity: Fall precautions Followup: Luz Mahmood MD [ACTIVE - CAN ADMIT] - Lemuel Jackman MD [Primary Care Provider] - Time spent managing pt's care (in minutes): 35
== END 2020-03-15 14:00 | disposition home or self-care (01) | DRG 159 ==
LOC: ER 07:05 → ERHOLD 14:12 → 2ND 15:20
PROVIDERS: ADMIT Hospitalist; ATTEND Hospitalist
DX: K12.2 Cellulitis and abscess of mouth (principal); G89.29 Other chronic pain; M54.9 Dorsalgia, unspecified; M19.90 Unspecified osteoarthritis, unspecified site; F32.9 Major depressive disorder, single episode, unspecified; F41.9 Anxiety disorder, unspecified; F17.210 Nicotine dependence, cigarettes, uncomplicated; R25.2 Cramp and spasm; Z90.710 Acquired absence of both cervix and uterus; Z79.82 Long term (current) use of aspirin; Z79.899 Other long term (current) drug therapy; Z20.822 Contact with and (suspected) exposure to COVID-19
CPT/HCPCS: 0240U; 36415; 70491; 80048; 82565; 82947; 83605; 83735; 83880; 84100; 84145; 85025; 87040; 87070; 87077; 87081; 87186; 87205; 96365; 96375; 99285; J0696; J1100; J2930; J3370; J7030; J7050; Q9967